=== PATIENT | male | born 2000 | race Caucasian/White ===

== ENCOUNTER 2020-03-06 14:58 | Emergency (ER) | payer OTHER, MEDICAID ==
[~2020-03-06] VITALS: Ht 175.3 cm; Wt 70.3 kg
[2020-03-06 15:08] VITALS: BP 144/79
[2020-03-06] MEDS ORDERED: LIDOCAINE 1% HCL (LOCAL ANESTH.) INJ 20ML MDV ID ONE (15:30)
[2020-03-06] MEDS ORDERED: ONDANSETRON HCL 4 MG/2 ML VIAL IM ONE (15:30)
[2020-03-06] MEDS ORDERED: MORPHINE SULFATE 10 MG/ML INJ 1ML SDV IM ONE (15:30)
[2020-03-06] MEDS ORDERED: cefTRIAXone SOD 1,000 MG VL ONE (15:31)
[2020-03-06] MEDS ORDERED: BACITRACIN TOP OINT 1 UD PKG TOP ONE (16:00)
[2020-03-06] MEDS ORDERED: cefTRIAXone SOD 1,000 MG VL IM ONE (16:00)
== END 2020-03-06 16:25 | disposition home or self-care (01) ==
LOC: ER 14:58
DX: S61.042A Puncture wound with foreign body of left thumb without damage to nail, initial encounter (principal); W20.8XXA Other cause of strike by thrown, projected or falling object, initial encounter; Y93.89 Activity, other specified; Y92.69 Other specified industrial and construction area as the place of occurrence of the external cause; Y99.8 Other external cause status
CPT/HCPCS: 10120; 73120; 73140; 96372; 99285; J0696; J2270; J2405